=== PATIENT | female | born 1970 | race Caucasian/White ===

== ENCOUNTER → 2017-01-31 | Outpatient (CLI) | payer OTHER ==
[~2017-01-31] MED LIST: LEVOTHYROXINE112 MCG PO; LEXAPRO10 MG PO; MACROBID 100 M100 MG PO; PANTOPRAZOLE SO40 MG PO; TYLENOL 500 MG500 MG PO
[2017-01-31 12:35] LABS: HEMOGLOBIN 14.3 gm/dl (12.3-15.3); RED BLOOD COUNT 4.83 M/UL (4.00-5.10); WHITE BLOOD COUNT 5.9 K/UL (4.5-11.0)
[2017-01-31 12:43] LABS: BUN/CREATININE RATIO 11 (0-10)
== END ==
LOC: LAB 11:57
PROVIDERS: Family Medicine
DX: R10.30 Lower abdominal pain, unspecified (principal); R78.3 Finding of hallucinogen in blood
CPT/HCPCS: 36415; 74000; 80053; 83690; 85027

== ENCOUNTER → 2017-02-27 | Day surgery (SDC) | payer OTHER | END | disposition home or self-care (01) | LOC: OR 07:32 | PROVIDERS: Internal Medicine Gastroenterology | PROC: 0DB68ZX Excision of Stomach, Via Natural or Artificial Opening Endoscopic, Diagnostic (ICD-10-PCS; principal; 2017-02-27 12:15) | DX: K29.50 Unspecified chronic gastritis without bleeding (principal); K21.0 Gastro-esophageal reflux disease with esophagitis; Z82.49 Family history of ischemic heart disease and other diseases of the circulatory system; Z83.3 Family history of diabetes mellitus; Z90.49 Acquired absence of other specified parts of digestive tract; Z90.710 Acquired absence of both cervix and uterus; Z98.890 Other specified postprocedural states | CPT/HCPCS: J2250; J3010; J7030 ==

== ENCOUNTER 2017-05-01 05:35 | Emergency (ER) | payer OTHER ==
[2017-05-01 07:18] LABS: HEMOGLOBIN 14.5 gm/dl (12.3-15.3); RED BLOOD COUNT 4.9 M/UL (4.00-5.10); WHITE BLOOD COUNT 6.5 K/UL (4.5-11.0)
[2017-05-01 07:39] LABS: BUN/CREATININE RATIO 13 (0-10)
== END 2017-05-01 09:53 | disposition home or self-care (01) ==
LOC: ER1 05:35
PROVIDERS: Physician Assistant
DX: N39.0 Urinary tract infection, site not specified (principal); R11.0 Nausea; Z90.49 Acquired absence of other specified parts of digestive tract; Z88.0 Allergy status to penicillin; Z88.2 Allergy status to sulfonamides; Z88.5 Allergy status to narcotic agent
CPT/HCPCS: 36415; 80053; 81001; 83690; 85025; 87077; 87086; 87186; 96361; 96374; 96375; 96376; 99284; J1885; J2270; J2405

== ENCOUNTER → 2021-05-17 | Outpatient (CLI) | payer BC | LOC: KOH-I 14:45 | DX: M79.671 Pain in right foot (principal) | CPT/HCPCS: 73630 ==

== ENCOUNTER → 2022-05-16 | Outpatient (CLI) | payer BC | LOC: KOH-I 10:25 | DX: M25.562 Pain in left knee (principal); M25.511 Pain in right shoulder | CPT/HCPCS: 73030; 73562 ==

== ENCOUNTER 2022-07-04 09:20 | Emergency (ER) | payer BC ==
[2022-07-04 10:25] LABS: HEMOGLOBIN 13.8 gm/dl (12.3-15.3); RED BLOOD COUNT 4.75 M/UL (4.00-5.10); WHITE BLOOD COUNT 7.9 K/UL (4.5-11.0)
[2022-07-04 10:46] LABS: BUN/CREATININE RATIO 15 (0-10)
[2022-07-04] MEDS ORDERED: PREDNISONE20 MG PO (11:37)
[2022-07-04] MEDS ORDERED: PROAIR DIGIHAL90 MCG INH (11:37)
== END 2022-07-04 11:45 | disposition home or self-care (01) ==
LOC: ER1 09:20
PROVIDERS: Nurse Practitioner
DX: B34.9 Viral infection, unspecified (principal); G43.909 Migraine, unspecified, not intractable, without status migrainosus; E03.9 Hypothyroidism, unspecified; Z90.710 Acquired absence of both cervix and uterus; Z88.0 Allergy status to penicillin; Z88.2 Allergy status to sulfonamides; Z88.5 Allergy status to narcotic agent; Z79.899 Other long term (current) drug therapy
CPT/HCPCS: 71045; 80053; 81001; 82550; 82553; 84484; 85025; 85379; 93005; 94664; 96374; 99285; J2930